=== PATIENT | female | born 1985 | race Caucasian/White ===

== ENCOUNTER 2018-03-04 02:38 | Inpatient (IN) | payer OTHER ==
[2018-03-04] MEDS ORDERED: KETOROLAC 15 MG INJ IV (03:30)
[2018-03-04] MEDS: ONDANSETRON 4 MG INJ IV (03:51)
[2018-03-04] MEDS: DEXTROSE 5%-0.45% NACL 1,000 ML IV (03:51)
[2018-03-04] MEDS ORDERED: ALBUTEROL HFA 8 GM INHALER INH (04:00)
[2018-03-04] MEDS: morphine 2 MG INJ IV ×2 (04:03→08:11)
[2018-03-04] MEDS ORDERED: VANCOMYCIN IV PER PHARMACY XX (04:30)
[2018-03-04] MEDS: PIPER-TAZO 3.375 GM IV (PMX) 100 ML IVPB ×3 (05:05→17:56)
[2018-03-04] MEDS: LORAZEPAM 2 MG INJ IV ×2 (05:05→12:35)
[2018-03-04 06:04] LABS: ADD MAN DIFF? NO
[2018-03-04 06:13] LABS: BASOPHILS % 0.2 % (0.0-2.0); EOSINOPHILS # 0.1 10^3/ul (0.0-0.5); EOSINOPHILS % 1.5 % (0.0-7.0); HEMATOCRIT 35.1 % (37.0-47.0); HEMOGLOBIN 11.8 g/dl (12.0-16.0); LYMPHOCYTES # 1.5 10^3/ul (0.8-2.9); LYMPHOCYTES % 17.2 % (15.0-51.0); MEAN CORPUSCULAR HEMOGLOBIN 30.6 pg (29.0-33.0); MEAN CORPUSCULAR HGB CONC 33.6 g/dl (32.0-37.0); MEAN CORPUSCULAR VOLUME 91.2 fl (82.0-101.0); MEAN PLATELET VOLUME 9.7 fl (7.4-10.4); MONOCYTE # 0.4 10^3/ul (0.3-0.9); MONOCYTES % 4.9 % (0.0-11.0); NEUTROPHIL # 6.4 10^3/ul (1.6-7.5); PLATELET COUNT 177 10^3/UL (140-415); RED BLOOD COUNT 3.85 10^6/ul (4.20-5.40); RED CELL DISTRIBUTION WIDTH 11.3 % (11.5-14.5)
[2018-03-04 06:13] LABS: WHITE BLOOD COUNT 8.5 10^3/ul (4.8-10.8)
[2018-03-04 06:52] LABS: ALANINE AMINOTRANSFERASE 15 IU/L (13-69); ALBUMIN 3.1 g/dl (3.3-4.9); ALKALINE PHOSPHATASE 60 IU/L (42-121); ANION GAP 12 (8-16); ASPARTATE AMINO TRANSFERASE 13 IU/L (15-46); BILIRUBIN,INDIRECT 0.5 mg/dl (0-1.1); BILIRUBIN,TOTAL 0.5 mg/dl (0.2-1.3); BLOOD UREA NITROGEN 5 mg/dl (7-20); CALCIUM 8.1 mg/dl (8.4-10.2); CARBON DIOXIDE 24 mmol/L (21-31); CHLORIDE 111 mmol/L (97-110); CREATININE 0.54 mg/dl (0.44-1.00); GLUCOSE 98 mg/dl (70-220); MAGNESIUM 1.7 mg/dl (1.7-2.5); PHOSPHORUS 2.6 mg/dl (2.5-4.9); POTASSIUM 3.6 mmol/L (3.5-5.1); SODIUM 143 mmol/L (135-144); TOTAL PROTEIN 5.9 g/dl (6.1-8.1)
[2018-03-04] MEDS: VANCOMYCIN 1.75 GM in SOD CHLORIDE 0.9% 500 ML IVPB (09:17)
[2018-03-04] MEDS: HYDROmorphONE 2 MG/ML SYG IV (10:14)
[2018-03-04] MEDS: NICOTINE (14 MG/24 HR) PATCH TRANSDERM (11:41)
[2018-03-04] MEDS: HYDROmorphONE 0.5 MG/0.5 ML SYG IV (15:43)
[2018-03-04] MEDS ORDERED: MEPERIDINE 25 MG INJ IV (16:30)
[2018-03-04] MEDS ORDERED: ONDANSETRON 4 MG INJ IV (16:30)
[2018-03-04] MEDS ORDERED: OXYCODONE/ACETAMINOPHEN (5/325) TAB PO ×2 (16:30)
[2018-03-04] MEDS ORDERED: HYDROmorphONE (0.2 MG/ML) 10ML SYG IV ×3 (16:30)
[2018-03-04] MEDS ORDERED: MIDAZOLAM 1 MG/ML 2 ML INJ (16:49)
[2018-03-04] MEDS ORDERED: PROPOFOL 20 ML (16:49)
[2018-03-04] MEDS ORDERED: ONDANSETRON 4 MG INJ (16:50)
[2018-03-04] MEDS ORDERED: METOCLOPRAMIDE 10 MG INJ (16:50)
[2018-03-04] MEDS ORDERED: FENTAnyl 50 MCG/ML VIAL (16:51)
[2018-03-04] MEDS: BACITRACIN 50000 UNITS INJ (17:12)
[2018-03-04] MEDS: LIDOCAINE 1% (MPF) 30 ML INJ (17:12)
[2018-03-04] MEDS: BUPIVACAINE 0.5%/EPI (SDV) 30 ML INJ (17:12)
[2018-03-04] MEDS: POLYMYXIN B 500000 UNIT INJ (17:12)
[2018-03-04] MEDS ORDERED: KETOROLAC 30 MG INJ (17:37)
[2018-03-04] MEDS ORDERED: HYDROmorphONE 2 MG/ML SYG (17:37)
[2018-03-04] MEDS: DIPHENHYDRAMINE 50 MG INJ IV (18:39)
[2018-03-04] MEDS: VANCOMYCIN 1 GM 250 ML IVPB (19:47)
[2018-03-04] MEDS: D5W-0.45 NACL + KCL 20 MEQ 1,000 ML IV (19:47)
[2018-03-04] MEDS: KETOROLAC 30 MG INJ IV (19:48)
[2018-03-04] MEDS: FAMOTIDINE 20 MG INJ IV (21:16)
[2018-03-04] MEDS: OXYCODONE/ACETAMINOPHEN (5/325) TAB PO (21:16)
[2018-03-05] MEDS: PIPER-TAZO 3.375 GM IV (PMX) 100 ML IVPB ×4 (01:06→18:04)
[2018-03-05] MEDS: VANCOMYCIN 1 GM 250 ML IVPB ×2 (01:51→10:41)
[2018-03-05] MEDS: KETOROLAC 30 MG INJ IV ×2 (01:52→08:15)
[2018-03-05] MEDS: morphine 2 MG INJ IV ×4 (02:21→15:38)
[2018-03-05] MEDS: D5W-0.45 NACL + KCL 20 MEQ 1,000 ML IV (04:00)
[2018-03-05] MEDS ORDERED: ENOXAPARIN 40 MG/0.4 ML SYG SC (05:22)
[2018-03-05 06:25] LABS: ADD MAN DIFF? NO
[2018-03-05] MEDS: ENOXAPARIN 40 MG/0.4 ML SYG SC (06:25)
[2018-03-05 06:30] LABS: BASOPHILS % 0.4 % (0.0-2.0); EOSINOPHILS # 0.2 10^3/ul (0.0-0.5); EOSINOPHILS % 3.5 % (0.0-7.0); HEMATOCRIT 31.4 % (37.0-47.0); HEMOGLOBIN 10.6 g/dl (12.0-16.0); LYMPHOCYTES % 28.3 % (15.0-51.0); MEAN CORPUSCULAR HEMOGLOBIN 30.7 pg (29.0-33.0); MEAN CORPUSCULAR HGB CONC 33.8 g/dl (32.0-37.0); MEAN PLATELET VOLUME 9.8 fl (7.4-10.4); MONOCYTE # 0.5 10^3/ul (0.3-0.9); MONOCYTES % 6.8 % (0.0-11.0); NEUTROPHIL # 4.2 10^3/ul (1.6-7.5); NEUTROPHILS % 60.9 % (39.0-77.0); PLATELET COUNT 175 10^3/UL (140-415); RED BLOOD COUNT 3.45 10^6/ul (4.20-5.40)
[2018-03-05 07:32] LABS: ANION GAP 10 (8-16); BLOOD UREA NITROGEN 9 mg/dl (7-20); CALCIUM 7.8 mg/dl (8.4-10.2); CARBON DIOXIDE 26 mmol/L (21-31); CHLORIDE 110 mmol/L (97-110); CREATININE 0.56 mg/dl (0.44-1.00); GLUCOSE 118 mg/dl (70-220); MAGNESIUM 2.1 mg/dl (1.7-2.5); PHOSPHORUS 3.1 mg/dl (2.5-4.9); POTASSIUM 3.9 mmol/L (3.5-5.1); SODIUM 142 mmol/L (135-144)
[2018-03-05] MEDS: NICOTINE (14 MG/24 HR) PATCH TRANSDERM (08:14)
[2018-03-05] MEDS: FAMOTIDINE 20 MG INJ IV ×2 (08:14→20:49)
[2018-03-05 10:35] LABS: VANCOMYCIN,TROUGH 7.7 ug/ml (10.0-20.0)
[2018-03-05] MEDS: OXYCODONE/ACETAMINOPHEN (5/325) TAB PO ×2 (12:14→18:39)
[2018-03-05] MEDS: VANCOMYCIN 1.25 GM in SOD CHLORIDE 0.9% 250 ML IVPB (18:40)
[2018-03-05] MEDS: DOCUSATE SODIUM 100 MG CAP PO (20:49)
[2018-03-05] MEDS: morphine LIQ (10 MG/5 ML) CUP PO (20:49)
[2018-03-06] MEDS: PIPER-TAZO 3.375 GM IV (PMX) 100 ML IVPB ×4 (00:38→17:47)
[2018-03-06] MEDS: OXYCODONE/ACETAMINOPHEN (5/325) TAB PO ×2 (00:40→07:57)
[2018-03-06] MEDS: VANCOMYCIN 1.25 GM in SOD CHLORIDE 0.9% 250 ML IVPB ×3 (02:14→18:35)
[2018-03-06] MEDS: morphine LIQ (10 MG/5 ML) CUP PO ×5 (02:16→23:11)
[2018-03-06 06:02] LABS: ADD MAN DIFF? NO
[2018-03-06 06:13] LABS: BASOPHILS % 0.4 % (0.0-2.0); EOSINOPHILS # 0.3 10^3/ul (0.0-0.5); EOSINOPHILS % 6.2 % (0.0-7.0); HEMATOCRIT 29.7 % (37.0-47.0); HEMOGLOBIN 10.2 g/dl (12.0-16.0); LYMPHOCYTES # 2.2 10^3/ul (0.8-2.9); LYMPHOCYTES % 41.7 % (15.0-51.0); MEAN CORPUSCULAR HEMOGLOBIN 30.9 pg (29.0-33.0); MEAN CORPUSCULAR HGB CONC 34.3 g/dl (32.0-37.0); MEAN PLATELET VOLUME 9.7 fl (7.4-10.4); MONOCYTE # 0.3 10^3/ul (0.3-0.9); MONOCYTES % 6.2 % (0.0-11.0); NEUTROPHIL # 2.4 10^3/ul (1.6-7.5); NEUTROPHILS % 45.3 % (39.0-77.0); PLATELET COUNT 184 10^3/UL (140-415)
[2018-03-06 06:13] LABS: WHITE BLOOD COUNT 5.2 10^3/ul (4.8-10.8)
[2018-03-06] MEDS: HYDROmorphONE 0.5 MG/0.5 ML SYG IV ×3 (06:27→20:15)
[2018-03-06] MEDS: ENOXAPARIN 40 MG/0.4 ML SYG SC (06:27)
[2018-03-06 06:48] LABS: ANION GAP 9 (8-16); BLOOD UREA NITROGEN 6 mg/dl (7-20); CARBON DIOXIDE 27 mmol/L (21-31); CHLORIDE 113 mmol/L (97-110); CREATININE 0.59 mg/dl (0.44-1.00); GLUCOSE 87 mg/dl (70-220); MAGNESIUM 1.9 mg/dl (1.7-2.5); PHOSPHORUS 4.1 mg/dl (2.5-4.9); POTASSIUM 3.9 mmol/L (3.5-5.1); SODIUM 145 mmol/L (135-144)
[2018-03-06] MEDS: DOCUSATE SODIUM 100 MG CAP PO ×2 (09:00→20:14)
[2018-03-06] MEDS: FAMOTIDINE 20 MG INJ IV ×2 (09:00→20:14)
[2018-03-06] MEDS: NICOTINE (14 MG/24 HR) PATCH TRANSDERM (09:01)
[2018-03-07] MEDS: PIPER-TAZO 3.375 GM IV (PMX) 100 ML IVPB ×4 (00:37→17:13)
[2018-03-07 01:34] LABS: VANCOMYCIN,TROUGH 12.9 ug/ml (10.0-20.0)
[2018-03-07] MEDS: VANCOMYCIN 1.25 GM in SOD CHLORIDE 0.9% 250 ML IVPB ×2 (02:13→09:51)
[2018-03-07 06:49] LABS: ADD MAN DIFF? NO
[2018-03-07 06:52] LABS: BASOPHILS % 0.4 % (0.0-2.0); EOSINOPHILS # 0.3 10^3/ul (0.0-0.5); EOSINOPHILS % 7.3 % (0.0-7.0); HEMATOCRIT 30.4 % (37.0-47.0); HEMOGLOBIN 10.3 g/dl (12.0-16.0); LYMPHOCYTES % 43.5 % (15.0-51.0); MEAN CORPUSCULAR HEMOGLOBIN 30.6 pg (29.0-33.0); MEAN CORPUSCULAR HGB CONC 33.9 g/dl (32.0-37.0); MEAN CORPUSCULAR VOLUME 90.2 fl (82.0-101.0); MEAN PLATELET VOLUME 9.9 fl (7.4-10.4); MONOCYTE # 0.4 10^3/ul (0.3-0.9); MONOCYTES % 7.8 % (0.0-11.0); NEUTROPHIL # 1.9 10^3/ul (1.6-7.5); PLATELET COUNT 199 10^3/UL (140-415); RED BLOOD COUNT 3.37 10^6/ul (4.20-5.40)
[2018-03-07 06:52] LABS: WHITE BLOOD COUNT 4.6 10^3/ul (4.8-10.8)
[2018-03-07 07:25] LABS: ALANINE AMINOTRANSFERASE 28 IU/L (13-69); ALBUMIN 2.9 g/dl (3.3-4.9); ALBUMIN/GLOBULIN RATIO 0.96; ALKALINE PHOSPHATASE 61 IU/L (42-121); ANION GAP 14 (8-16); ASPARTATE AMINO TRANSFERASE 21 IU/L (15-46); BILIRUBIN,INDIRECT 0.1 mg/dl (0-1.1); BILIRUBIN,TOTAL 0.1 mg/dl (0.2-1.3); BLOOD UREA NITROGEN 4 mg/dl (7-20); CALCIUM 8.2 mg/dl (8.4-10.2); CARBON DIOXIDE 24 mmol/L (21-31); CHLORIDE 110 mmol/L (97-110); CREATININE 0.56 mg/dl (0.44-1.00); GLUCOSE 90 mg/dl (70-220); POTASSIUM 3.9 mmol/L (3.5-5.1); SODIUM 144 mmol/L (135-144); TOTAL PROTEIN 5.9 g/dl (6.1-8.1)
[2018-03-07 07:26] LABS: CHOL/HDL RATIO 3.1 RATIO; CHOLESTEROL 120 mg/dl (100-200); HDL CHOLESTEROL 38 mg/dl (34-82); LDL CHOLESTEROL,CALCULATED 59 mg/dl; MAGNESIUM 1.8 mg/dl (1.7-2.5); TRIGLYCERIDES 114 mg/dl (0-149)
[2018-03-07 07:26] LABS: PHOSPHORUS 4.9 mg/dl (2.5-4.9)
[2018-03-07] MEDS: NICOTINE (14 MG/24 HR) PATCH TRANSDERM (09:51)
[2018-03-07] MEDS: DOCUSATE SODIUM 100 MG CAP PO ×2 (09:51→20:18)
[2018-03-07] MEDS: FAMOTIDINE 20 MG INJ IV ×2 (09:51→20:10)
[2018-03-07] MEDS: HYDROmorphONE 0.5 MG/0.5 ML SYG IV ×2 (09:52→17:14)
[2018-03-07] MEDS: ENOXAPARIN 40 MG/0.4 ML SYG SC (09:52)
[2018-03-07] MEDS: morphine LIQ (10 MG/5 ML) CUP PO ×2 (11:58→20:11)
[2018-03-07] MEDS: POLYETHYLENE GLYCOL 17 GM PACKET PO ×2 (12:15→20:19)
[2018-03-07] MEDS: BISACODYL (EC) 5 MG TAB PO (13:30)
[2018-03-07] MEDS: OXYCODONE/ACETAMINOPHEN (5/325) TAB PO (21:01)
[2018-03-08] MEDS: PIPER-TAZO 3.375 GM IV (PMX) 100 ML IVPB ×5 (00:24→23:42)
[2018-03-08] MEDS: HYDROmorphONE 0.5 MG/0.5 ML SYG IV ×3 (00:24→15:27)
[2018-03-08] MEDS: morphine LIQ (10 MG/5 ML) CUP PO ×4 (05:32→22:48)
[2018-03-08 05:38] LABS: ADD MAN DIFF? NO
[2018-03-08 05:42] LABS: WHITE BLOOD COUNT 4.5 10^3/ul (4.8-10.8)
[2018-03-08 05:42] LABS: BASOPHILS % 0.2 % (0.0-2.0); EOSINOPHILS # 0.3 10^3/ul (0.0-0.5); EOSINOPHILS % 6.8 % (0.0-7.0); HEMATOCRIT 30.9 % (37.0-47.0); HEMOGLOBIN 10.7 g/dl (12.0-16.0); LYMPHOCYTES % 44.3 % (15.0-51.0); MEAN CORPUSCULAR HEMOGLOBIN 30.8 pg (29.0-33.0); MEAN CORPUSCULAR HGB CONC 34.6 g/dl (32.0-37.0); MEAN PLATELET VOLUME 9.8 fl (7.4-10.4); MONOCYTE # 0.3 10^3/ul (0.3-0.9); MONOCYTES % 6.8 % (0.0-11.0); NEUTROPHIL # 1.9 10^3/ul (1.6-7.5); NEUTROPHILS % 41.7 % (39.0-77.0); PLATELET COUNT 234 10^3/UL (140-415); RED BLOOD COUNT 3.47 10^6/ul (4.20-5.40); RED CELL DISTRIBUTION WIDTH 10.9 % (11.5-14.5)
[2018-03-08 06:07] LABS: ANION GAP 10 (8-16); BLOOD UREA NITROGEN 5 mg/dl (7-20); CALCIUM 8.3 mg/dl (8.4-10.2); CARBON DIOXIDE 26 mmol/L (21-31); CHLORIDE 111 mmol/L (97-110); CREATININE 0.55 mg/dl (0.44-1.00); GLUCOSE 90 mg/dl (70-220); POTASSIUM 3.8 mmol/L (3.5-5.1); SODIUM 143 mmol/L (135-144)
[2018-03-08 06:13] LABS: PHOSPHORUS 4.9 mg/dl (2.5-4.9)
[2018-03-08 06:13] LABS: MAGNESIUM 1.8 mg/dl (1.7-2.5)
[2018-03-08] MEDS: DOCUSATE SODIUM 100 MG CAP PO ×2 (09:00→20:19)
[2018-03-08] MEDS: POLYETHYLENE GLYCOL 17 GM PACKET PO ×2 (09:00→20:19)
[2018-03-08] MEDS: NICOTINE (14 MG/24 HR) PATCH TRANSDERM (09:08)
[2018-03-08] MEDS: FAMOTIDINE 20 MG INJ IV ×2 (09:08→20:12)
[2018-03-08] MEDS: ENOXAPARIN 40 MG/0.4 ML SYG SC (09:09)
[2018-03-08] MEDS ORDERED: BISMUTH SUBSALICYLATE 120 ML BTL PO (18:30)
[2018-03-08] MEDS: BISMUTH SUBSALICYLATE 240 ML BTL PO (20:20)
[2018-03-08] MEDS ORDERED: BISMUTH SUBSALICYLATE 240 ML BTL PO (20:30)
[2018-03-09] MEDS: PIPER-TAZO 3.375 GM IV (PMX) 100 ML IVPB ×3 (05:33→17:50)
[2018-03-09] MEDS: HYDROmorphONE 2 MG TAB PO ×2 (07:52→16:27)
[2018-03-09] MEDS: ENOXAPARIN 40 MG/0.4 ML SYG SC (07:53)
[2018-03-09] MEDS: NICOTINE (14 MG/24 HR) PATCH TRANSDERM (08:49)
[2018-03-09] MEDS: FAMOTIDINE 20 MG INJ IV (08:49)
[2018-03-09] MEDS: DOCUSATE SODIUM 100 MG CAP PO ×2 (08:50)
[2018-03-09] MEDS: POLYETHYLENE GLYCOL 17 GM PACKET PO (08:50)
[2018-03-09] MEDS: morphine LIQ (10 MG/5 ML) CUP PO ×2 (11:21→18:51)
== END 2018-03-09 20:45 | disposition home health service (06) | DRG 358 ==
LOC: PP2 02:38
PROVIDERS: Internal Medicine
PROC: 0JBB0ZZ Excision of Perineum Subcutaneous Tissue and Fascia, Open Approach (ICD-10-PCS; principal; 2018-03-04 16:51)
PROC: 0J9B0ZX Drainage of Perineum Subcutaneous Tissue and Fascia, Open Approach, Diagnostic (ICD-10-PCS; 2018-03-04 16:51)
DX: K61.3 Ischiorectal abscess (principal); E66.9 Obesity, unspecified; Z68.30 Body mass index [BMI] 30.0-30.9, adult; J45.909 Unspecified asthma, uncomplicated; F17.210 Nicotine dependence, cigarettes, uncomplicated; K90.0 Celiac disease; I10 Essential (primary) hypertension; G43.909 Migraine, unspecified, not intractable, without status migrainosus; F41.9 Anxiety disorder, unspecified; F43.10 Post-traumatic stress disorder, unspecified; F17.290 Nicotine dependence, other tobacco product, uncomplicated; F12.90 Cannabis use, unspecified, uncomplicated; B96.20 Unspecified Escherichia coli [E. coli] as the cause of diseases classified elsewhere; B95.4 Other streptococcus as the cause of diseases classified elsewhere; N83.209 Unspecified ovarian cyst, unspecified side
CPT/HCPCS: 80048; 80053; 80061; 80202; 83036; 83735; 84100; 84703; 85025; 87040; 87070; 87075; 87116